=== PATIENT | female | born 1935 | race Caucasian/White ===

== ENCOUNTER 2018-06-03 20:13 | Inpatient (IN) | payer MEDICARE ==
[2018-06-03 21:15] LABS: #Basophils 0.1 thou/uL (0.0-0.2); #Lymphocytes 0.9 thou/uL (1.20-3.40); #Monocytes 0.4 thou/uL (0.11-0.59); #Neutrophils 10.5 thou/uL (1.40-6.50); %Basophils 0.5 % (0.0-1.0); %Eosinophils 0.2 % (0.0-10.0); %Lymphocytes 7.6 % (21.0-51.0); %Monocytes 2.9 % (0.0-10.0); %Neutrophils 88.8 % (42.0-75.0); Mean Corpuscular Hemoglobin 33.5 pg (27.0-31.0); Mean Corpuscular Volume 95.6 fL (78.0-98.0); Mean Platelet Volume 6.5 fL (7.4-10.4); Platelet Count 261 thou/uL (130-400); RBC Distribution Width 12.7 % (11.5-14.5); Red Blood Cell (RBC) Count 4.48 mill/uL (4.20-5.40); White Blood Cell (WBC) Count 11.9 thou/uL (4.8-10.8)
--- NOTE | 2018-06-03 21:16 | RAD ---
RADIOGRAPH CHEST 1 VIEW: Date: 06/03/18 Time: 7:50 p.m. HISTORY: 82-year-old female with fever. COMPARISON: 10/19/15. FINDINGS: Ectasia and tortuosity of the thoracic aorta. Prior studies were lateral decubitus views, and therefo re direct comparison of the apparently enlarged right hilar shadow, is difficult. Lungs are hypoinfla vernon. There is a region of nonspecific increased attenuation at the right lateral base. No consolidati on or pulmonary edema in the rest of the visualized lung allen. No pneumothorax. No effacement of la teral costophrenic angles. IMPRESSION: 1. Nonspecific area of faintly low attenuation at the right lateral base. This does not appear t ypical for an infiltrate, and perhaps is artifact. 2. No evidence of pneumonia elsewhere. 3. enlarged appearance of the right hilum. JN [] POS: JIN
[2018-06-03 21:33] LABS: ALT (SGPT) 10 U/L (8-55); AST (SGOT) 21 U/L (5-34); Albumin 3.8 g/dL (3.4-4.8); Alkaline Phosphatase 63 U/L (40-150); Anion Gap 13 mmol/L (10-20); BUN (Urea Nitrogen) 14 mg/dL (9.8-20.1); Bilirubin, Total 0.7 mg/dL (0.2-1.2); Calc. Creatinine Clearance 0 mL/min (70-130); Calcium 9.2 mg/dL (7.8-10.44); Carbon Dioxide 21 mmol/L (23-31); Chloride 98 mmol/L (98-107); Estimated GFR-MDRD 71; Globulin 2.6 g/dL (2.4-3.5); Glucose 222 mg/dL (83-110); Potassium 3.5 mmol/L (3.5-5.1); Protein, Total 6.4 g/dL (6.0-8.3); Sodium 128 mmol/L (136-145)
[2018-06-03 21:42] LABS: Bilirubin Negative (Negative); Blood, Urine Moderate (Negative); Clarity CLOUDY (Clear); Glucose, Urine (Dipstick) Negative (Negative); Leukocyte Moderate (Negative); Nitrite Positive (Negative); Protein, Urine (Dipstick) Negative (Neg-Trace); Specific Gravity, Urine 1.015 (1.002-1.036); Urobilinogen 0.2 mg/dL (0.2-1.0)
[2018-06-03 21:44] LABS: Bacteria/HPF Rare-Few HPF (None Seen); Pathc Cast-AUWi Flag 1.59 (0-2.49); Squamous Epithelial None Seen HPF (0-3); WBC/HPF 21-50 HPF (0-3)
[2018-06-03] MEDS ORDERED: Ketorolac Tromethamine 30 MG/ML VIAL ONE (21:47)
[2018-06-03] MEDS ORDERED: cefTRIAXone\\ROCEPHIN 1 GM VIAL ONE (22:09)
[2018-06-04] MEDS ORDERED: Norepinephrine 8 MG/0.9% NS 250 ML ONE (00:44)
[2018-06-04] MEDS ORDERED: Acetaminophen 325 MG TAB PO PRN (01:17)
[2018-06-04] MEDS ORDERED: Ondansetron HCl/PF 4 MG/2 ML Vial IVP PRN (01:17)
[2018-06-04] MEDS ORDERED: Norepinephrine 8 MG/0.9% NS 250 ML IVPB SCH (01:30)
[2018-06-04] MEDS ORDERED: VANCOMYCIN IVPB PRN (01:38)
[2018-06-04 02:16] VITALS: BMI 28.6
[2018-06-04] MEDS: Sodium Chloride 0.9% 1,000 ML IV SCH ×2 (03:27→12:39)
[2018-06-04 04:46] LABS: Anion Gap 12 mmol/L (10-20); BUN (Urea Nitrogen) 11 mg/dL (9.8-20.1); Calc. Creatinine Clearance 74 mL/min (70-130); Carbon Dioxide 17 mmol/L (23-31); Chloride 107 mmol/L (98-107); Estimated GFR-MDRD 80; Glucose 185 mg/dL (83-110); Potassium 3.4 mmol/L (3.5-5.1); Sodium 133 mmol/L (136-145)
[2018-06-04] MEDS: Piperacillin/Tazobactam 3.375 GM in Sodium Chloride 0.9% 100 ML IVPB SCH ×3 (05:40→18:36)
[2018-06-04] MEDS: Levothyroxine Sodium 100 MCG TAB PO SCH (05:44)
--- NOTE | 2018-06-04 06:05 | HP ---
PRIMARY CARE PHYSICIAN: . CODE STATUS: FULL CODE. TIME OF EVALUATION: 11:45 p.m. CHIEF COMPLAINT: Confusion. HISTORY OF PRESENT ILLNESS: This is an 82-year-old female patient with past medical history of hyper tension, left breast cancer without treatment, chronic back pain. The patient came to the hospital a fter having a fall, patient had generalized weakness, symptoms were severe, no clear triggers, no all eviating factors associated with disorientation, confusion. Patient was found to have fever in the E R. REVIEW OF SYSTEMS: Unable to fully obtain since patient has a change in mental status. PAST MEDICAL HISTORY: Mentioned on the HPI. PAST SURGICAL HISTORY: Appendectomy, hysterectomy, left breast biopsy. PSYCHIATRIC HISTORY: No previous psychiatric history. FAMILY HISTORY: Reviewed and noncontributory for current presentation. SOCIAL HISTORY: Patient used tobacco, smokes cigarettes daily. Patient smoked 1 pack per day. DRUG ALLERGIES: MORPHINE. REPORTED MEDICATIONS: Levothyroxine, captopril, aspirin, gabapentin. PHYSICAL EXAMINATION: VITAL SIGNS: On presentation blood pressure 113/62 with heart rate 120, pain was 0, oxygen saturatio ns 90. CONSTITUTIONAL: Patient had fever, chills, generalized weakness, severe, disoriented, not in any acu te distress. HEENT: Eyes: Normal conjuctivae. Dry oral mucosa. Anicteric. NECK: No JVD. RESPIRATORY: Bilateral air entry. No rales, no wheezing. Symmetric expansion. CARDIOVASCULAR: Normal rate, regular rhythm. No murmurs, no gallop, no edema. ABDOMEN: Soft, normal bowel sounds. MUSCULOSKELETAL: Baseline range of motion and strength. No tenderness. SKIN: Warm and intact. No pallor, no rash, no redness. Peripheral pulses are present. Capillary r efill seems to be intact. NEUROLOGIC: Baseline sensory. No evidence of any new focal weakness. Baseline speech. Cranial ner ves seem to be intact. PSYCHIATRIC: Patient is disoriented, unable to fully explore. LABORATORY DATA: EKG was reviewed. The patient has sinus tachycardia with first-degree AV block, le ft axis deviation, complete RBBB, septal infarct. T-wave abnormality consider inferior lateral ische lindsey, ventricular rate 116, WI 216, QRS 118, QT corrected 453. Chest x-ray was reviewed. The patient had no specific area of pain to the low attenuation of the right lateral base. Perhaps, this does n ot appear typical for an infiltrate perhaps represent artifacts. No evidence of pneumonia enla rgement of the right ilium. LABORATORY DATA: Reviewed. The patient's white count 11.9, hemoglobin 15, MCV 95, platelet count 26 1. Sodium 128, potassium 3.5, chloride 98, carbon dioxide 21, anion gap 13, BUN 14, creatinine 0.7, GFR 71, glucose 222. Urine was positive, white count 21-50. ASSESSMENT AND PLAN: The patient will be placed in the hospital with following medical conditions: Critical care time more than 35 minutes span at bedside for patient stabilization, assessment of the patient, family meeting, coordination of care, reviewing the elaboration of records. 1. Patient is in septic shock with fever, hypotension needing vasopressors, patient also receiving a ntibiotics, we will follow cultures, we will adjust treatment as needed. We will do CAT scan wheneve r patient is stable to rule out complicated urinary tract infection. 2. Urinary tract infection, positive UA, urine culture pending. We will follow results, we will ad just treatment as needed. Management as above. Patient received a full liter of fluids. 3. Uncontrolled hypertension. Patient presented with shock, did not give any blood pressure medicat ion at this point. 4. Hypothyroidism. Continue hormone replacement. 5. Chronic obstructive pulmonary disease, this is chronic, seems to be stable, we will reconcile estrada e medications. 6. Deep venous thrombosis prophylaxis. 7. History of left breast malignancy, patient has opted for no treatment.
[2018-06-04 06:27] LABS: #Lymphocytes 1.9 thou/uL (1.20-3.40); #Monocytes 0.9 thou/uL (0.11-0.59); #Neutrophils 8.9 thou/uL (1.40-6.50); %Basophils 0.1 % (0.0-1.0); %Eosinophils 0.2 % (0.0-10.0); %Lymphocytes 16.4 % (21.0-51.0); %Monocytes 7.9 % (0.0-10.0); %Neutrophils 75.3 % (42.0-75.0); Hemoglobin 13.9 g/dL (12.0-16.0); Mean Corpuscular HGB CONC 33.2 g/dL (32.0-36.0); Mean Corpuscular Volume 96.4 fL (78.0-98.0); Mean Platelet Volume 7.2 fL (7.4-10.4); Platelet Count 199 thou/uL (130-400); RBC Distribution Width 12.7 % (11.5-14.5); RBC Morphology Normal; Red Blood Cell (RBC) Count 4.34 mill/uL (4.20-5.40); White Blood Cell (WBC) Count 11.8 thou/uL (4.8-10.8)
--- NOTE | 2018-06-04 06:39 | CT ---
CT HEAD NONCONTRAST: INDICATIONS: Fall with head injury. Pain. COMPARISON: 05/19/2008 FINDINGS: There is stable atrophy with compensatory dilatation of the ventricular system. Encephalomalacia of the right frontal lobe, anteriorly, is again seen, which is superimposed upon mild chronic ischemic d isease. There are punctate areas of diminished attenuation of the bilateral basal ganglia, compatibl e with lacunar infarctions. The calvarium is intact. No fluid level of the imaged paranasal sinuses . IMPRESSION: 1. No acute intracranial hemorrhage or mass effect. 2. Incidental note of focal hyperdensity of the left suboccipital region, partially imaged. This co uld relate to volume averaging of the posterior paraspinous/left neck musculature, although the findi ng is not confirmed. As necessary, followup with cervical spine CT may be performed to confirm trave rsing neck musculature of this region. CODE T POS: SCOTTY
--- NOTE | 2018-06-04 06:56 | PDOC.EVN ---
Event Note - Event Note Event Note: central line was in not appropriate position, needs to be removed and placement of a new one if still needed for vasopressors
--- NOTE | 2018-06-04 07:43 | CT ---
PRELIMINARY REPORT/[facility]/EMERGENTY AFTER-HOURS PROCEDURE Addendum created by Chet Ritter MD on 06/04/2018 6:53 AM Central Time ([place] & [place]) Findings were dis cussed with Kavita York at 06/04/2018 6:51 AM CDT. Initial Report created on 06/04/2018 6:46 AM Central Time ([place] & [place]) CT Abdomen and Pelvis Without Intravenous Contrast EXAM DATE/TIME: Exam ordered 06/04/2018 5:12 AM CLINICAL HISTORY: 82 years old, female; Pain; Abdominal pain; Generalized; Patient HX: R/O complicated uti TECHNIQUE: Axial computed tomography images of the abdomen and pelvis without intravenous contrast. Coronal refo rmatted images were created and reviewed. COMPARISON: No relevant prior studies available. FINDINGS: Lung bases: There is a 13 mm nodule within the LEFT lingula. Pleural space: There are small bilateral pleural effusions and interlobular thickening consistent wit h pulmonary edema. ABDOMEN: Liver: The liver demonstrates punctate calcifications, consistent with remote granulomatous organism exposure. Gallbladder and bile ducts: The gallbladder is normal. There is no evidence of biliary ductal dilatio n. No calcified stones. Pancreas: The pancreas appears normal. No ductal dilation. Spleen: The spleen demonstrates punctate calcifications, consistent with remote granulomatous organis m exposure. Adrenals: The adrenal glands are normal. Kidneys and ureters: The kidneys appear normal. No obstructing stones. No hydronephrosis. Stomach and bowel: The stomach is normal. The duodenum is unremarkable. The colon is normal. No obstruction. No mucosal thickening. PELVIS: Appendix: No findings to suggest acute appendicitis. Bladder: The bladder is normal. No stones. Reproductive: The uterus is not visualized, and may be atrophic or surgically absent. ABDOMEN and PELVIS: Intraperitoneal space: Normal. No free air. No significant fluid collection. Bones/joints: There is a 2.7 x 1.6 x 2.0 cm soft tissue mass within the LEFT posterior elements of L4 . There are moderate lumbar spine degenerative changes. No acute fracture. No dislocation. Soft tissues: There is questionable LEFT breast soft tissue thickening, incompletely visualized. Vasculature: Normal. No abdominal aortic aneurysm. Lymph nodes: Normal. No enlarged lymph nodes. IMPRESSION: 1. There is a 13 mm nodule within the LEFT lingula. 2. There is a 2.7 x 1.6 x 2.0 cm soft tissue mass within the LEFT posterior elements of L4. Further w orkup is recommended. 3. Small bilateral pleural effusions with mild pulmonary edema. Thank you for allowing us to participate in the care of your patient. Dictated and Authenticated by: Chet Ritter MD 06/04/2018 6:46 AM Central Time ([place] & [place]) FINAL REPORT CT ABDOMEN AND PELVIS WITHOUT CONTRAST: HISTORY: Complicated urinary tract infection. COMPARISON: None. FINDINGS: The findings and impression are concordant with the preliminary report. In addition, there is abnorm al wall skin thickening over the left breast. IMPRESSION: Findings and impression are concordant with the preliminary report. Diagnostic mammography and ultra sound is recommended. After workup of this left breast soft tissue thickening, histologic sampling m ay be necessary at the L4 posterior element mass. CODE: T POS: SCOTTY
--- NOTE | 2018-06-04 08:12 | RAD ---
RADIOGRAPH CHEST 1 VIEW: Date: 06/04/18 Time: 0039 HOURS HISTORY: 82-year-old female status post central line placement. COMPARISON: 06/03/18 at 1950 hours. FINDINGS: There is a new right subclavian central vascular catheter which ascends the right neck, with distal t ip outside of the field of view. Prominent right hilum is again noted. Elevated right hemidiaphragm. Small, ill-defined region of increased attenuation at the lateral aspect of the left lower lung zone, apparently new since the prior study. No pulmonary edema. No pneumothorax. IMPRESSION: 1. Right subclavian central vascular catheter ascends the right neck. 2. No pneumothorax. 3. Questionable new focal pulmonary versus chest wall density at left lateral lower lung zone versus artifact. Recommend follow-up. 4. Enlargement of right hilum. PRETTY [] POS: SCOTTY
[2018-06-04] MEDS: Aspirin 81 mg Enteric Coated Tablet PO SCH (08:32)
[2018-06-04] MEDS: Enoxaparin Sodium 40 MG/0.4 ML SYRINGE SC SCH (08:32)
--- NOTE | 2018-06-04 08:41 | PDOC.PULCN ---
<Zach Soares - Last Filed: 06/04/18 10:13> Pulmonology Consult: HPI - Date of Consult Date: 06/04/18 Time: 08:00 - Consult Details Reason for Consult: ICU admission needed pressure support - History of Present Illness HPI: NARESH KELLEY is a 82 year-old F 82 yo F admitted after collapsing at home. She states that she was having a normal day prior to the event and suddenly felt weak and collapsed. She denies LOC or hitting her head. In the ED she was noted to have a UA c/w UTI, though pt denies symptoms such as frequency or dysuria. She was noted to be hypotensive and required pressure support. R SC CVC was placed, however the distal tip is in the IJ. Patient was started on Vanc and zosyn in the ER. This morning pt complains of new cough and wheezing. She denies prior hx of similar symptoms. Pulmonology Consult: ROS - Review of Systems Constitutional: sweats, weakness. negative: fever, chills Cardiovascular: negative: chest pain, palpitations, edema Respiratory: productive cough, wheezing. negative: bloody sputum, short of breath Pulmonology Consult: PMH Source: patient Past Medical History: HTN, L Breast Ca s/p lumpectomy, hypothyroid - Family History Family history: reviewed and not pertinent - Social History Smoking Status: Current every day smoker, Smokes 11 or more cig/day Pack Years: 40 Alcohol Use: none Drug Use History: none Living Situation: independent Pulmonology Consult: Meds - Medications MAR Reviewed: Yes Medications: Current Medications Acetaminophen (Tylenol) 650 mg PO Q4H PRN PRN Reason: Headache/Fever or Pain Aspirin (Ecotrin) 81 mg PO DAILY PAO Enoxaparin Sodium (Lovenox) 40 mg SC 0900 PAO Gabapentin (Neurontin) 300 mg PO HS PAO Piperacillin Sod/Tazobactam (Sod 3.375 gm/ Sodium Chloride) 100 mls @ 200 mls/ hr IVPB Q6HR PAO Last Admin: 06/04/18 05:40 Dose: 100 mls Norepinephrine Bitartrate (Levophed) 250 mls @ 0 mls/hr IVPB INF PAO; Protocol Sodium Chloride (Normal Saline 0.9%) 1,000 mls @ 100 mls/hr IV .Q10H PAO Last Admin: 06/04/18 03:27 Dose: 1,000 mls Vancomycin HCl 1.25 gm/ Sodium (Chloride) 250 mls @ 166.667 mls/hr IVPB 1600 [facility] Levothyroxine Sodium (Synthroid) 100 mcg PO 0600 [facility] Last Admin: 06/04/18 05:44 Dose: 100 mcg Miscellaneous Medication (Pharmacy To Dose) 0 each IVPB PRN PRN PRN Reason: VANCOMYCIN Ondansetron HCl (Zofran) 4 mg IVP Q6H PRN PRN Reason: Nausea/Vomiting Pantoprazole Sodium (Protonix) 40 mg PO DAILY [facility] - Allergies Allergies/Adverse Reactions: Allergies Allergy/AdvReac Type Severity Reaction Status Date / Time morphine Allergy Verified 10/18/15 21:24 Pulmonology Consult: PE - Physical Exam Constitutional: NAD HEENT: PERRLA, moist MMs Neck: no nodes, no JVD Cardiovascular: RRR Deviation from normal: Difficult to asucultate heart sounds over wheezing Respiratory: wheezes (throughout) Gastrointestinal: soft, non-tender, no distention, positive bowel sounds Musculoskeletal: no edema Neurological: non-focal, normal sensation, moves all 4 limbs Psychiatric: normal affect, A&O x 3 Skin: no rash, normal turgor Pulmonology Consult: Results - Labs Result Diagrams: 06/04/18 04:27 06/04/18 04:26 - Radiology Interpretation CT scan - chest Status: image reviewed by me, report reviewed by me (b/l pleural effusion, 13 mm nodule in L lingula) Chest x-ray Status: image reviewed by me, report reviewed by me (SC CVC ending in R IJ, pulmonary vs chest wall density L lung) CT scan - abdomen Status: image reviewed by me, report reviewed by me (Soft tissue mass L posterior L4) Pulmonology Consult: A/P - Problem (1) Sepsis Current Visit: No Code(s): A41.9 - SEPSIS, UNSPECIFIED ORGANISM Status: Acute (2) COPD (chronic obstructive pulmonary disease) Current Visit: Yes Status: Suspected (3) UTI (urinary tract infection) Current Visit: Yes Status: Acute (4) Soft tissue mass Current Visit: Yes Code(s): M79.9 - SOFT TISSUE DISORDER, UNSPECIFIED Status : Acute - Time Time: 50% of the time was spent in coordination of care (as documented) at patient's floor/unit and/or counseling patient. Time with Patient: greater than 50 minutes - Plan Plan: Urosepsis - pt doing much better this morning that at time of admission. No longer requiring pressure support. Pt has received adequate IVF. - change abx to rocephin daily, cultures pending - may be appropriate to leave ICU today if BP continues to be stable COPD - this is the most likely cause of the patient's wheezing. Though she does not carry the dx, her hx is certainly c/w COPD. - not currently requiring O2, does not have home O2 - Continue to monitir Soft tissue mass posterior L4 - incidental finding on CT. May need further work up in outpt setting. HTN - BP currently stable. Restart home meds when appropriate <Adalid Lemons - Last Filed: 06/04/18 12:36> Pulmonology Consult: HPI - History of Present Illness HPI: NARESH KELLEY is a 82 year-old F Pulmonology Consult: Meds - Medications Medications: Current Medications Acetaminophen (Tylenol) 650 mg PO Q4H PRN PRN Reason: Headache/Fever or Pain Aspirin (Ecotrin) 81 mg PO DAILY [facility] Last Admin: 06/04/18 08:32 Dose: 81 mg Enoxaparin Sodium (Lovenox) 40 mg SC 0900 [facility] Last Admin: 06/04/18 08:32 Dose: 40 mg Gabapentin (Neurontin) 300 mg PO HS PAO Piperacillin Sod/Tazobactam (Sod 3.375 gm/ Sodium Chloride) 100 mls @ 200 mls/ hr IVPB Q6HR [facility] Last Admin: 06/04/18 05:40 Dose: 100 mls Norepinephrine Bitartrate (Levophed) 250 mls @ 0 mls/hr IVPB INF PAO; Protocol Sodium Chloride (Normal Saline 0.9%) 1,000 mls @ 100 mls/hr IV .Q10H [facility] Last Admin: 06/04/18 03:27 Dose: 1,000 mls Vancomycin HCl 1.25 gm/ Sodium (Chloride) 250 mls @ 166.667 mls/hr IVPB 1600 PAO Levothyroxine Sodium (Synthroid) 100 mcg PO 0600 [facility] Last Admin: 06/04/18 05:44 Dose: 100 mcg Miscellaneous Medication (Pharmacy To Dose) 0 each IVPB PRN PRN PRN Reason: VANCOMYCIN Ondansetron HCl (Zofran) 4 mg IVP Q6H PRN PRN Reason: Nausea/Vomiting Last Admin: 06/04/18 08:28 Dose: 4 mg Pantoprazole Sodium (Protonix) 40 mg PO DAILY PAO Last Admin: 06/04/18 08:32 Dose: 40 mg Pulmonology Consult: Results - Labs Result Diagrams: 06/04/18 04:27 06/04/18 04:26 Pulmonology Consult: A/P - Time Time: 50% of the time was spent in coordination of care (as documented) at patient's floor/unit and/or counseling patient. Attending Addendum - Attending Addendum Date/Time: 06/04/18 [id number] I personally evaluated the patient and discussed the management with Dr. Soares I agree with the History, Examination, Assessment and Plan documented above with any addition or exceptions noted below. 70 minutes have been devoted to this patient in various activities. I personally reviewed all imaging studies and laboratory data noted within this document. For fifty percent of this time, I was interacting with the patient at the bedside or coordinating care with the care team. For the remainder of the time I was immediately available to the patient in the hospital unit.
[2018-06-04] MEDS: Vancomycin HCl 1.25 GM in Sodium Chloride 0.9% 250 ML 250 ML IVPB SCH (16:46)
[2018-06-04] MEDS: Gabapentin 300 MG CAP PO SCH (20:38)
--- NOTE | 2018-06-04 23:00 | PDOC.PN ---
- Subjective Encounter Start Date: 06/04/18 Encounter Start Time: 09:00 Doing well today. Feeling better. Did not have any symptoms of the UTI. - Objective Resuscitation Status: Resuscitation Status FULL:Full Resuscitation Vital Signs & Weight: Vital Signs (12 hours) Temp Pulse Pulse BP BP Pulse Ox Pulse Ox 06/04/18 19:00 99.0 F 06/04/18 16:00 98.1 F 06/04/18 14:44 97 103 H 108/81 132/64 96 95 Weight Weight 171 lb 15.369 oz Most Recent Monitor Data Heart Rate from ECG 97 NIBP 120/65 NIBP BP-Mean 92 Respiration from ECG 24 SpO2 100 I&O: 06/03/18 06/04/18 06/05/18 06:59 06:59 06:59 Intake Total 511.2 1940 Output Total 1575 Balance 511.2 365 Result Diagrams: 06/04/18 04:27 06/04/18 04:26 Phys Exam - Physical Examination Constitutional: NAD Respiratory: no wheezing, no rales, no rhonchi, wheezing present Cardiovascular: RRR, no significant murmur Gastrointestinal: soft, non-tender, no distention Musculoskeletal: no edema Psychiatric: normal affect Dx/Plan (1) UTI (urinary tract infection) Status: Acute (2) COPD (chronic obstructive pulmonary disease) Status: Suspected (3) Sepsis Code(s): A41.9 - SEPSIS, UNSPECIFIED ORGANISM Status: Acute - Plan * Continue abx. Follow up cultures. Transfer to floor. Off of pressors.
[2018-06-05] MEDS: Piperacillin/Tazobactam 3.375 GM in Sodium Chloride 0.9% 100 ML IVPB SCH ×5 (00:26→23:47)
[2018-06-05] MEDS: Sodium Chloride 0.9% 1,000 ML IV SCH (00:26)
[2018-06-05] MEDS ORDERED: Furosemide 40 MG/4 ML VIAL ONE (04:05)
[2018-06-05] MEDS ORDERED: Furosemide 40 MG/4 ML VIAL SLOW IVP SCH (04:15)
[2018-06-05] MEDS: Levothyroxine Sodium 100 MCG TAB PO SCH (05:34)
[2018-06-05 07:37] LABS: Actual Bicarbonate (HCO3a) 17.8 mEq/L (22-28); CO2 Tension 54.8 mmHg (35.0-45.0); O2 Tension (PaO2) 96.2 mmHg (> 60.0); pH, Arterial 7.13 (7.35-7.45)
[2018-06-05 07:38] LABS: Base Excess (BEa) -11.8 mEq/L (-2.0 to +3.0); Calcium, Ionized 1.2 mmol/L (1.12-1.30); Hemoglobin (Hb) 15.3 g/dL (12.0-16.0); Puncture Site RRA
[2018-06-05 09:21] LABS: Band 16 % (5-11); Hemoglobin 14.8 g/dL (12.0-16.0); Lymphocytes 6 % (21-51); MDiff Complete? YES; Mean Corpuscular HGB CONC 32.9 g/dL (32.0-36.0); Mean Corpuscular Hemoglobin 32.4 pg (27.0-31.0); Mean Corpuscular Volume 98.4 fL (78.0-98.0); Mean Platelet Volume 6.6 fL (7.4-10.4); Monocytes 2 % (0-10); Neutrophil 76 % (42-75); Platelet Count 207 thou/uL (130-400); RBC Distribution Width 12.7 % (11.5-14.5); Red Blood Cell (RBC) Count 4.56 mill/uL (4.20-5.40)
[2018-06-05 09:34] LABS: Lactic Acid 5.3 mmol/L (0.5-2.2)
[2018-06-05 09:40] LABS: Anion Gap 16 mmol/L (10-20); BUN (Urea Nitrogen) 10 mg/dL (9.8-20.1); Calc. Creatinine Clearance 45 mL/min (70-130); Calcium 8.6 mg/dL (7.8-10.44); Carbon Dioxide 19 mmol/L (23-31); Chloride 103 mmol/L (98-107); Estimated GFR-MDRD 45; Glucose 268 mg/dL (83-110); Magnesium 1.7 mg/dL (1.6-2.6); Phosphorus 2.9 mg/dL (2.3-4.7); Potassium 3.7 mmol/L (3.5-5.1); Sodium 134 mmol/L (136-145)
[2018-06-05] MEDS ORDERED: Sodium Bicarbonate 150 MEQ in Dextrose 5% in Water 1,000 ML IV SCH (10:00)
[2018-06-05] MEDS ORDERED: Lactated Ringer's 1,000 ML IV SCH (10:00)
[2018-06-05] MEDS ORDERED: Magnesium Sulfate 2 GM in Sodium Chloride 0.9% 100 ML IVPB SCH (10:15)
--- NOTE | 2018-06-05 10:25 | PRG ---
DATE OF SERVICE: 06/05/2018 SERVICE: Pulmonary Medicine. INTERVAL HISTORY: The patient did poorly overnight. She became increasingly lethargic. She had increasing work of breathing and started grunting. Ultimately, an ABG was performed demonstrating acute hypercapnic as well as metabolic acidosis. We temporized her with BiPAP. We are in the investigation phase right now. She cannot provide any additional elements of the history. Otherwise, there has been no interval change to her condition. PHYSICAL EXAMINATION: VITAL SIGNS: Afebrile with temperature maximum 99.8, which is up trending, pulse 119 and irregular, blood pressure 114/64, respirations 30, saturation 96% on 60% FiO2 delivered via BiPAP at 10/5. HEENT: Normocephalic, atraumatic. Sclerae are white, conjunctivae pink. Oral and nasal mucosa is extremely dry. LUNGS: Rhonchi are present throughout bilateral lung allen. I really do not appreciate crackles or wheezing. HEART: Tachycardic. Regular. ABDOMEN: Soft, nontender, nondistended. Bowel sounds are positive. MUSCULOSKELETAL: No cyanosis or clubbing. There is no pitting in the bilateral lower extremities. NEUROLOGIC: Grossly nonfocal. LABORATORY DATA: Morning laboratories are currently pending. We previously discontinued them, but because of her change in status, we are going to go ahead and order them. She has gram negative rods growing in the urine culture and 1 out of 2 blood cultures growing coag negative staph. IMAGING DATA: Chest x-ray demonstrates small infiltrate in the right mid lung zone. No evidence of pneumothorax is present. There is blunting of bilateral costophrenic regions, possibly consistent with fluid. ASSESSMENT: 1. Acute hypoxic respiratory failure. 2. Septic shock, resolving. 3. Urinary tract infection. 4. Chronic obstructive pulmonary disease with acute exacerbation. 5. Combined metabolic and respiratory acidosis. DISCUSSION AND PLAN: We are going to talk to family about whether or not the patient would like to be aggressive under these circumstances. I do believe that moving forward, she is likely going to require intubation in order to give this some more time to clarify what happening here. We are going to continue our empiric antibiotics. Central line will be considered to help clarify our volume status. CBC, basic metabolic profile, lactate, magnesium and phosphorus will be obtained under stat conditions. Pulmonary or Critical Care will continue to follow along. I have titrated BiPAP at bedside. The patient is going to need quite a bit of attention throughout the day. CRITICAL CARE TIME: 30 minutes. JEFFRY
[2018-06-05] MEDS ORDERED: Magnesium 2 GM/NS 0.9% 100 ML 2 GM in Premix Bag 1 BAG IVPB SCH (10:30)
--- NOTE | 2018-06-05 10:37 | RAD ---
SINGLE VIEW OF CHEST: Date: 06/05/18 COMPARISON: 06/04/18. HISTORY: Intubated patient with respiratory failure. FINDINGS: Single view of the chest shows normal sized cardiomediastinal silhouette. There is elevation of the r ight hemidiaphragm. Bilateral lower lobe air space opacities are seen which may represent infiltrates and/or pleural effusions. No endotracheal tube is visualized. IMPRESSION: Bibasilar infiltrates with likely adjacent small pleural effusions. POS: [facility]
[2018-06-05] MEDS: Enoxaparin Sodium 40 MG/0.4 ML SYRINGE SC SCH (11:28)
[2018-06-05 15:33] LABS: Base Excess (BEa) -8.1 mEq/L (-2.0 to +3.0); CO2 Tension 50.8 mmHg (35.0-45.0); Calcium, Ionized 1.2 mmol/L (1.12-1.30); Hemoglobin (Hb) 14.9 g/dL (12.0-16.0); O2 Tension (PaO2) 87.8 mmHg (> 60.0); pH, Arterial 7.21 (7.35-7.45)
[2018-06-05 15:34] LABS: Puncture Site RRA
--- NOTE | 2018-06-05 15:54 | PDOC.PN ---
- Subjective Encounter Start Date: 06/05/18 Encounter Start Time: 10:15 She took a turn for worse during the night. She is having some respiratory failure and requiring non-rebreather. Non-verbal. - Objective Resuscitation Status: Resuscitation Status DNR:Do Not Resuscitate Vital Signs & Weight: Vital Signs (12 hours) Temp Pulse Resp Pulse Ox 06/05/18 14:31 124 H 06/05/18 12:26 117 H 06/05/18 12:00 100.3 F H 06/05/18 10:43 120 H 06/05/18 08:00 99.7 F H 119 H 34 H 97 06/05/18 07:45 119 H 06/05/18 07:00 99.8 F H 06/05/18 04:00 98.5 F 97 Weight Weight 171 lb 15.369 oz Most Recent Monitor Data Heart Rate from ECG 126 NIBP 131/65 NIBP BP-Mean 94 Respiration from ECG 33 SpO2 80 I&O: 06/04/18 06/05/18 06/06/18 06:59 06:59 06:59 Intake Total 511.2 3019 1000 Output Total 1955 480 Balance 511.2 1064 520 Result Diagrams: 06/05/18 08:55 06/05/18 08:55 Phys Exam - Physical Examination Non-rebreather with tachypnea. Respiratory: no rales Harsh bilateral wheezes and rales. Cardiovascular: RRR, no significant murmur Gastrointestinal: soft, non-tender, no distention Musculoskeletal: no edema Dx/Plan (1) UTI (urinary tract infection) Status: Acute (2) COPD (chronic obstructive pulmonary disease) Status: Suspected (3) Sepsis Code(s): A41.9 - SEPSIS, UNSPECIFIED ORGANISM Status: Acute (4) Respiratory failure Code(s): J96.90 - RESPIRATORY FAILURE, UNSP, UNSP W HYPOXIA OR HYPERCAPNIA Status: Acute (5) Pneumonia Code(s): J18.9 - PNEUMONIA, UNSPECIFIED ORGANISM Status: Acute - Plan * She is on broad spectrum abx coverage. Initially did well, but took a turn for the worse. Suspect she is having repercussions from the hypotension from sepsis and suffering some end-organ damage. Discussed with P/CC. Trying bicarb for acidosis. Family has made the patient DNR.
[2018-06-05 16:06] LABS: Vancomycin, Trough 7.9 ug/mL
[2018-06-05 16:24] LABS: Lactic Acid 4.4 mmol/L (0.5-2.2)
[2018-06-05 16:25] LABS: Anion Gap 14 mmol/L (10-20); BUN (Urea Nitrogen) 13 mg/dL (9.8-20.1); Calc. Creatinine Clearance 43 mL/min (70-130); Calcium 8.2 mg/dL (7.8-10.44); Carbon Dioxide 19 mmol/L (23-31); Chloride 102 mmol/L (98-107); Estimated GFR-MDRD 42; Glucose 305 mg/dL (83-110); Potassium 3.7 mmol/L (3.5-5.1); Sodium 131 mmol/L (136-145)
[2018-06-05] MEDS: Aspirin 81 mg Enteric Coated Tablet PO SCH (16:40)
[2018-06-05] MEDS: Vancomycin HCl 1.25 GM in Sodium Chloride 0.9% 250 ML 250 ML IVPB SCH (16:40)
[2018-06-05] MEDS: Vancomycin HCl 1.75 GM in Sodium Chloride 0.9% 500 ML IVPB SCH (17:53)
[2018-06-05] MEDS: Sodium Bicarbonate 150 MEQ in Dextrose 5% in Water 1,000 ML IV SCH (17:54)
[2018-06-05] MEDS ORDERED: Acetaminophen 325 MG TAB PO PRN (19:55)
[2018-06-05] MEDS ORDERED: Acetaminophen 650 MG Suppository PR PRN (19:56)
[2018-06-05] MEDS: Enoxaparin Sodium 60 MG/0.6 ML SYRINGE SC SCH (20:02)
[2018-06-05] MEDS: Gabapentin 300 MG CAP PO SCH (20:05)
[2018-06-05] MEDS: Acetaminophen 1,000 MG in Premix Bag 1 BAG IVPB PRN (23:47)
[2018-06-06 04:43] LABS: Anion Gap 16 mmol/L (10-20); BUN (Urea Nitrogen) 20 mg/dL (9.8-20.1); Calc. Creatinine Clearance 35 mL/min (70-130); Calcium 8.4 mg/dL (7.8-10.44); Carbon Dioxide 24 mmol/L (23-31); Chloride 100 mmol/L (98-107); Estimated GFR-MDRD 33; Glucose 368 mg/dL (83-110); Potassium 3.5 mmol/L (3.5-5.1); Sodium 136 mmol/L (136-145)
[2018-06-06 04:44] LABS: Lactic Acid 2.7 mmol/L (0.5-2.2)
[2018-06-06 05:16] LABS: #Lymphocytes 0.9 thou/uL (1.20-3.40); #Monocytes 0.4 thou/uL (0.11-0.59); #Neutrophils 12.5 thou/uL (1.40-6.50); %Basophils 0.1 % (0.0-1.0); %Eosinophils 0.2 % (0.0-10.0); %Lymphocytes 6.6 % (21.0-51.0); %Neutrophils 90.2 % (42.0-75.0); Hemoglobin 14.3 g/dL (12.0-16.0); Mean Corpuscular HGB CONC 33.1 g/dL (32.0-36.0); Mean Corpuscular Hemoglobin 32.5 pg (27.0-31.0); Mean Corpuscular Volume 98.3 fL (78.0-98.0); Mean Platelet Volume 7.5 fL (7.4-10.4); PLT Morphology Comment Appears Decreased; Platelet Count 89 thou/uL (130-400); RBC Distribution Width 12.7 % (11.5-14.5); White Blood Cell (WBC) Count 13.8 thou/uL (4.8-10.8)
[2018-06-06] MEDS: Piperacillin/Tazobactam 3.375 GM in Sodium Chloride 0.9% 100 ML IVPB SCH ×3 (05:51→18:14)
[2018-06-06] MEDS: Levothyroxine Sodium 100 MCG TAB PO SCH (06:03)
[2018-06-06] MEDS: Sodium Bicarbonate 150 MEQ in Dextrose 5% in Water 1,000 ML IV SCH (06:10)
--- NOTE | 2018-06-06 10:02 | PRG ---
DATE OF SERVICE: 06/06/2018 SERVICE: Pulmonary Medicine. INTERVAL HISTORY: The patient is actually doing quite a bit better today. She is . Her oxygen requirements are improving beautifully. She does not have any specific complaints this morning. Tram pena is much more awake and oriented. She appreciates where she is. She remains extraordinarily weak; however. PHYSICAL EXAMINATION: VITAL SIGNS: T-max overnight of 106.3, currently afebrile. Pulse 109, blood pressure 127/74, respir ations 15, and saturation 100% on nonrebreather currently. GENERAL: The patient is awake and alert. No apparent distress. LUNGS: Rhonchi and crackles are present. There is a prolonged expiratory phase with minimal wheezin g. HEART: Normal rate, regular. ABDOMEN: Soft, nontender, nondistended. Bowel sounds are positive. MUSCULOSKELETAL: No cyanosis or clubbing. There is no pitting in the bilateral lower extremities. NEUROLOGIC: Grossly nonfocal. LABORATORY DATA: WBC 13.8, hemoglobin 14.3, platelets 89,000 and dropping. Creatinine 1.49 and stab ilizing, potassium 3.5. Basic metabolic profile is otherwise unremarkable. Lactate is slowly cleari ng to 2.7. Pseudomonas is growing in the urine, which is pansensitive. The blood cultures are posit jerrell for 2 different coag negative species in 1 out of 2. IMAGING: Chest x-ray demonstrates interval development of a very large effusion on the left. There i s also a likely pleural effusion on the right. ASSESSMENT: 1. Acute hypoxic respiratory failure. 2. Septic shock, resolving. 3. Urinary tract infection. 4. Chronic obstructive pulmonary disease with acute exacerbation. 5. Pleural effusion, large. DISCUSSION AND PLAN: We will do a bedside ultrasound. If we see a large pocket of fluid on the left , this will be drained. We will continue our empiric antibiotics. It is not clear what has given amanda martinez a severe fever, 3 days into the hospital stay on antibiotics the entire time. She is cautiously c learing some of her end-organ damage. We are going to discontinue the bicarbonate drip today and chanda e her off BiPAP. We will put her on a nonrebreather and titrate this down through time. My suspicio n is that a large effusion on the left caused some atelectasis resulting in the severe hypoxemia, we witnessed yesterday.
--- NOTE | 2018-06-06 10:14 | RAD ---
SINGLE VIEW CHEST: Date: 06/06/18 COMPARISON: 06/05/18. HISTORY: Hypoxia. FINDINGS: Single view of the chest shows a cardiomediastinal silhouette which is upper limits of normal in size . There is a moderate left and a small right effusion. Adjacent atelectasis is also present. Degenera tive changes are seen in the spine. IMPRESSION: Bilateral pleural effusions. POS: [facility]
[2018-06-06] MEDS ORDERED: Lidocaine 1% (PF) 30 ML VIAL ONE (10:41)
[2018-06-06] MEDS: Pantoprazole 40 MG VIAL IVP SCH (10:57)
[2018-06-06] MEDS: Enoxaparin Sodium 60 MG/0.6 ML SYRINGE SC SCH ×2 (10:59→20:11)
[2018-06-06 11:04] LABS: BF Color Yellow; Body Fluid Source THORACENTESIS FLD; Clarity Clear (Clear)
[2018-06-06 11:05] LABS: RBC Background Count 0.001; WBC Background Count 0.01; WBC/NonHematic-Auto 870 /cumm
[2018-06-06 11:07] LABS: Pleural Fluid, Protein 1.4 g/dL
[2018-06-06 11:27] LABS: BF RBC Count - Manual 97 /cumm
[2018-06-06 11:38] LABS: BF Segmented Neutrophils 78 %; Cell Count Non Hematic 20 %; Lymphocytes 2 %
--- NOTE | 2018-06-06 13:42 | PDOC.PN ---
- Subjective Encounter Start Date: 06/06/18 Encounter Start Time: 10:50 No specific complaints, but has some difficulty speaking with the oxygen mask and tachypnea. - Objective Resuscitation Status: Resuscitation Status DNR:Do Not Resuscitate Vital Signs & Weight: Vital Signs (12 hours) Temp Pulse Resp Pulse Ox 06/06/18 12:57 108 H 17 06/06/18 07:55 100 06/06/18 07:00 99.5 F 06/06/18 06:42 105 H 06/06/18 05:00 99.1 F 06/06/18 03:18 108 H 06/06/18 03:00 98.7 F Weight Weight 171 lb 15.369 oz Most Recent Monitor Data Heart Rate from ECG 108 NIBP 84/57 NIBP BP-Mean 67 Respiration from ECG 27 SpO2 82 I&O: 06/05/18 06/06/18 06/07/18 06:59 06:59 06:59 Intake Total 3019 4439 Output Total 1955 940 50 Balance 1064 3499 -50 Result Diagrams: 06/06/18 03:45 06/06/18 03:45 Phys Exam - Physical Examination Still very tachypneic. Improved air exchange. Still has rales and upper airway secretions. Cardiovascular: RRR, no significant murmur Gastrointestinal: soft, non-tender, no distention, positive bowel sounds Musculoskeletal: no edema Dx/Plan (1) Septic shock due to Pseudomonas species Code(s): A41.52 - SEPSIS DUE TO PSEUDOMONAS; R65.21 - SEVERE SEPSIS WITH SEPTIC SHOCK Status: Acute Comment: Appeared to have some end organ damage, but improving now. (2) Acute respiratory failure with hypoxia Code(s): J96.01 - ACUTE RESPIRATORY FAILURE WITH HYPOXIA Status: Acute Comment: Improving. Pulmonary following. Tapped effusion this morning. (3) UTI (urinary tract infection) Status: Acute Comment: Pseudomonas. Sensitive to the zosyn. (4) COPD (chronic obstructive pulmonary disease) Status: Suspected Comment: Still has some respiratory challenge. Continue nebs, supportive oxygen. (5) Sepsis Code(s): A41.9 - SEPSIS, UNSPECIFIED ORGANISM Status: Acute Comment: Stabilizing. (6) Respiratory failure Code(s): J96.90 - RESPIRATORY FAILURE, UNSP, UNSP W HYPOXIA OR HYPERCAPNIA Status: Acute Comment: Developed pleural effusion overnight. Tapped by Pulmonary this morning. (7) Pneumonia Code(s): J18.9 - PNEUMONIA, UNSPECIFIED ORGANISM Status: Acute Comment: Continue Zosyn. (8) Pleural effusion Code(s): J90 - PLEURAL EFFUSION, NOT ELSEWHERE CLASSIFIED Status: Acute Comment: Tapped. Clear, straw colored fluid. (9) Septic shock Code(s): A41.9 - SEPSIS, UNSPECIFIED ORGANISM; R65.21 - SEVERE SEPSIS WITH SEPTIC SHOCK Status: Acute (10) Breast cancer Status: Acute Comment: Has chosen not to pursue treatment. (11) Paraspinal mass Code(s): R22.2 - LOCALIZED SWELLING, MASS AND LUMP, TRUNK Status: Acute Comment: Can be evaluated as outpatient when more stable. - Plan * As above. * Continue ICU care.
[2018-06-06] MEDS: Vancomycin HCl 1.75 GM in Sodium Chloride 0.9% 500 ML IVPB SCH (18:13)
[2018-06-06] MEDS: Gabapentin 300 MG CAP PO SCH (20:11)
[2018-06-06] MEDS: Acetaminophen 1,000 MG in Premix Bag 1 BAG IVPB PRN (21:00)
[2018-06-07] MEDS: Piperacillin/Tazobactam 3.375 GM in Sodium Chloride 0.9% 100 ML IVPB SCH ×4 (00:21→18:32)
[2018-06-07 05:00] LABS: Anion Gap 15 mmol/L (10-20); BUN (Urea Nitrogen) 31 mg/dL (9.8-20.1); Calc. Creatinine Clearance 33 mL/min (70-130); Calcium 8.9 mg/dL (7.8-10.44); Carbon Dioxide 24 mmol/L (23-31); Chloride 101 mmol/L (98-107); Estimated GFR-MDRD 31; Glucose 268 mg/dL (83-110); Potassium 3.4 mmol/L (3.5-5.1); Sodium 137 mmol/L (136-145)
[2018-06-07 05:03] LABS: Band 5 % (5-11); Hemoglobin 14.1 g/dL (12.0-16.0); Lymphocytes 3 % (21-51); MDiff Complete? YES; Mean Corpuscular Hemoglobin 32.8 pg (27.0-31.0); Mean Corpuscular Volume 96.3 fL (78.0-98.0); Mean Platelet Volume 7.7 fL (7.4-10.4); Monocytes 2 % (0-10); Neutrophil 90 % (42-75); PLT Morphology Comment Appears Decreased; Platelet Count 103 thou/uL (130-400); RBC Distribution Width 12.5 % (11.5-14.5); White Blood Cell (WBC) Count 23.7 thou/uL (4.8-10.8)
[2018-06-07] MEDS: Levothyroxine Sodium 100 MCG TAB PO SCH (06:28)
[2018-06-07] MEDS: Pantoprazole 40 MG VIAL IVP SCH (07:42)
[2018-06-07] MEDS: Enoxaparin Sodium 60 MG/0.6 ML SYRINGE SC SCH ×2 (07:43→20:27)
--- NOTE | 2018-06-07 11:45 | PDOC.PN ---
- Subjective Encounter Start Date: 05/21/18 Encounter Start Time: 11:44 Subjective: feels like "heck", some SOB - Objective Resuscitation Status: Resuscitation Status DNR:Do Not Resuscitate MAR Reviewed: Yes Vital Signs & Weight: Vital Signs (12 hours) Temp Pulse Pulse Pulse Resp BP BP 06/07/18 08:15 118 H 118 H 136/62 120/62 06/07/18 07:08 06/07/18 07:04 100 26 H 06/07/18 06:00 100.5 F H 06/07/18 04:00 101.0 F H 06/07/18 00:00 98.2 F Pulse Ox Pulse Ox Pulse Ox 06/07/18 08:15 96 98 06/07/18 07:08 96 06/07/18 07:04 96 06/07/18 06:00 06/07/18 04:00 06/07/18 00:00 Weight Admit Weight 171 lb 15.369 oz Weight 185 lb 10.067 oz Most Recent Monitor Data Heart Rate from ECG 111 NIBP 104/55 NIBP BP-Mean 65 Respiration from ECG 19 SpO2 93 I&O: 06/06/18 06/07/18 06/08/18 06:59 06:59 06:59 Intake Total 4439 1232 Output Total 940 445 Balance 3499 787 Result Diagrams: 06/07/18 03:42 06/07/18 03:41 Phys Exam - Physical Examination Neck: no JVD bilat rhonchi, coarse DS Cardiovascular: RRR, no significant murmur Gastrointestinal: soft, positive bowel sounds Musculoskeletal: edema present Dx/Plan (1) Acute respiratory failure with hypoxia Code(s): J96.01 - ACUTE RESPIRATORY FAILURE WITH HYPOXIA Status: Acute Comment: Improving. Pulmonary following. Tapped effusion this morning. (2) Breast cancer Status: Chronic Comment: Has chosen not to pursue treatment. (3) Pleural effusion Code(s): J90 - PLEURAL EFFUSION, NOT ELSEWHERE CLASSIFIED Status: Acute Comment: Tapped. Clear, straw colored fluid. (4) Respiratory failure Code(s): J96.90 - RESPIRATORY FAILURE, UNSP, UNSP W HYPOXIA OR HYPERCAPNIA Status: Acute Qualifiers: Chronicity: acute Respiratory failure complication: hypoxia Qualified Code(s): J96.01 - Acute respiratory failure with hypoxia Comment: Developed pleural effusion overnight. Tapped by Pulmonary this morning. (5) Septic shock Code(s): A41.9 - SEPSIS, UNSPECIFIED ORGANISM; R65.21 - SEVERE SEPSIS WITH SEPTIC SHOCK Status: Acute (6) Septic shock due to Pseudomonas species Code(s): A41.52 - SEPSIS DUE TO PSEUDOMONAS; R65.21 - SEVERE SEPSIS WITH SEPTIC SHOCK Status: Acute Comment: Appeared to have some end organ damage, but improving now. (7) UTI (urinary tract infection) Status: Acute Qualifiers: Urinary tract infection type: site unspecified Comment: Pseudomonas. Sensitive to the zosyn. (8) COPD (chronic obstructive pulmonary disease) Status: Acute Qualifiers: Chronic bronchitis type: unspecified Comment: Still has some respiratory challenge. Continue nebs, supportive oxygen. (9) Pneumonia Code(s): J18.9 - PNEUMONIA, UNSPECIFIED ORGANISM Status: Acute Qualifiers: Pneumonia type: due to unspecified organism Laterality: bilateral Lung location: lower lobe of lung Qualified Code(s): J18.1 - Lobar pneumonia, unspecified organism Comment: Continue Zosyn. (10) Sepsis Code(s): A41.9 - SEPSIS, UNSPECIFIED ORGANISM Status: Acute Qualifiers: Sepsis type: sepsis due to unspecified organism Qualified Code(s): A41.9 - Sepsis, unspecified organism Comment: Stabilizing. - Plan progressive renal failure -: progressive adverse pulmnary chahges -: cont iv antibx, sterrpoids -: discuss with rural service engineer * .
[2018-06-07] MEDS ORDERED: Furosemide 40 MG/4 ML VIAL SLOW IVP SCH (15:30)
[2018-06-07] MEDS ORDERED: Potassium Chloride 20 MEQ TAB PO SCH (15:30)
--- NOTE | 2018-06-07 15:39 | PRG ---
DATE OF SERVICE: 06/07/2018 SERVICE: Pulmonary Medicine. INTERVAL HISTORY: The patient is doing fine from a respiratory standpoint. She is actually doing fa ntastic sitting up in a neuro chair today. She denies having shortness of breath or chest discomfort . She did not have any events overnight. PHYSICAL EXAMINATION: VITAL SIGNS: Afebrile with a T-max of 100.5, pulse 114, blood pressure 132/68, respirations 23, satu ration 95% on room air. GENERAL: The patient is awake and alert, in no apparent distress. LUNGS: Rhonchi and crackles are present. There is no prolonged expiratory phase or wheezing identif ied. HEART: Normal rate, regular. ABDOMEN: Soft, nontender, nondistended. Bowel sounds are positive. MUSCULOSKELETAL: No cyanosis or clubbing. There is no pitting in the bilateral lower extremities. NEUROLOGIC: Grossly nonfocal. LABORATORY DATA: WBC is up trending to 23.7, hemoglobin 14.1, platelets 103,000 and rebounding. Cre atinine 1.57 and stabilizing, BUN 31. Potassium 3.4. Basic metabolic profile is otherwise unremarka ble. Thoracentesis is consistent with a parapneumonic effusion. Pseudomonas aeruginosa is growing i n the urine. Blood cultures are negative in one of the two. The other one is growing contaminants. Body fluid culture and AFB smear are negative. IMAGING: Echocardiogram demonstrates 20%-25% ejection fraction with global hypokinesis. There was s ome mitral regurgitation present. ASSESSMENT: 1. Acute hypoxic respiratory failure, improving. 2. Septic shock, resolving. 3. Urinary tract infection. 4. Chronic obstructive pulmonary disease with acute exacerbation. 5. Acute systolic heart failure. DISCUSSION AND PLAN: We will get Cardiology consultation. We will continue her antibiotics. We luann l watch her volume status very closely. She will use her BiPAP on an as needed basis. Otherwise, I do think she is going to remain in the ICU for at least the next 24 hours, but if she continues to ma ke significant improvements, we will consider for transition to the medical unit in the morning.
--- NOTE | 2018-06-07 15:44 | PQF ---
CLINICAL DOCUMENTATION IMPROVEMENT CLARIFICATION FORM: ICD-10 Updated PLEASE DO AN ADDENDUM TO THE PROGRESS NOTE WITH ANY DOCUMENTATION UPDATES OR ADDITIONS AND CARRY THROUGH TO DC SUMMARY. THANK YOU. DATE: 06/07/18 ATTN: Dr. Low Please exercise your independent, professional judgment in responding to the clarification form. Clinical indicators are provided on the bottom of this form for your review Please check appropriate box(s): x__ I (concur) with the Nursing Assessment findings as stated below. [ ] Pressure Ulcer: (Stage I: Erythema; Stage II: Partial thickness; Stage III : Full thickness; Stage IV: Necrosis to muscle/bone) [ ] Location: POA: [ ] Yes [ ] No[ ] Unable to determine Stage (I to IV): ____(Left____Right____Bilateral___N/A___) [ ] Location: POA: [ ] Yes [ ] No[ ] Unable to determine Stage (I to IV): ____(Left____Right____Bilateral___N/A___) [ ] No pressure ulcer diagnosis [ ] Deep tissue injury [ ] Other diagnosis [ ] Unable to determine In addition, please specify: Present on Admission (POA): [x ] Yes [ ] No [ ] Unable to determine For continuity of documentation, please document condition throughout progress notes and discharge summary. Thank You. CLINICAL INDICATORS - SIGNS / SYMPTOMS / LABS ER NURSES SKIN ASSESSMENT 06/03 @ 2200: PRESSURE ULCER TO THE SACRUM, STAGE II NURSES ASSESSMENT 06/04 @ 0329: SACROCOCCYGEAL PRESSURE ULCER. STAGE II RISKS: H&P 06/04: AGE 82. PT IS IN SEPTIC SHOCK WITH FEVER. UTI. COPD. TREATMENT: SKIN INTERVENTIONS PER NURSING PROTOCOL: POSITION CHANGES: Q2H IN BED, Q1H IN CHAIR SKIN KEPT FROM EXCESSIVE MOISTURE. Thank you, Dea (This form is maintained as a part of the permanent medical record) 2015 [employer]. All Rights Reserved Dea Wright RN, BSN [email or web address] Office: [phone] [facility]
[2018-06-07 15:57] LABS: Vancomycin, Trough 26.5 ug/mL
[2018-06-07] MEDS: Vancomycin HCl 1.75 GM in Sodium Chloride 0.9% 500 ML IVPB SCH (16:24)
[2018-06-07] MEDS: Diltiazem HCl 125 MG, Admixture Fee 1 EACH in Sodium Chloride 0.9% 100 ML IVPB SCH (19:10)
[2018-06-07] MEDS: Gabapentin 300 MG CAP PO SCH (20:27)
[2018-06-08] MEDS: Piperacillin/Tazobactam 3.375 GM in Sodium Chloride 0.9% 100 ML IVPB SCH ×3 (00:42→14:07)
[2018-06-08] MEDS ORDERED: Lorazepam 2 MG/ML VIAL SLOW IVP SCH (01:15)
[2018-06-08] MEDS: Levothyroxine Sodium 100 MCG TAB PO SCH (05:20)
[2018-06-08] MEDS: Diltiazem HCl 125 MG, Admixture Fee 1 EACH in Sodium Chloride 0.9% 100 ML IVPB SCH (05:20)
[2018-06-08 05:36] LABS: Anion Gap 14 mmol/L (10-20); BUN (Urea Nitrogen) 41 mg/dL (9.8-20.1); Calc. Creatinine Clearance 31 mL/min (70-130); Calcium 8.4 mg/dL (7.8-10.44); Carbon Dioxide 26 mmol/L (23-31); Chloride 101 mmol/L (98-107); Estimated GFR-MDRD 27; Glucose 285 mg/dL (83-110); Potassium 3.1 mmol/L (3.5-5.1); Sodium 138 mmol/L (136-145)
[2018-06-08 06:13] LABS: Band 5 % (5-11); Hemoglobin 13.5 g/dL (12.0-16.0); Lymphocytes 2 % (21-51); MDiff Complete? YES; Mean Corpuscular HGB CONC 34.3 g/dL (32.0-36.0); Mean Corpuscular Volume 96.3 fL (78.0-98.0); Monocytes 2 % (0-10); Neutrophil 91 % (42-75); PLT Morphology Comment Appears Decreased; Platelet Count 108 thou/uL (130-400); RBC Distribution Width 12.6 % (11.5-14.5); Red Blood Cell (RBC) Count 4.09 mill/uL (4.20-5.40)
--- NOTE | 2018-06-08 07:18 | PDOC.PN ---
- Subjective Encounter Start Date: 06/08/18 Encounter Start Time: 07:16 Subjective: weak, requiring BIPAP - Objective Resuscitation Status: Resuscitation Status DNR:Do Not Resuscitate MAR Reviewed: Yes Vital Signs & Weight: Vital Signs (12 hours) Temp Pulse Resp Pulse Ox 06/08/18 06:42 95 06/08/18 06:41 112 H 17 95 06/08/18 04:00 98.1 F 98 06/08/18 02:38 104 H 06/08/18 00:27 108 H 25 H 06/08/18 00:00 99.2 F 06/07/18 20:00 98.1 F 139 H 19 95 06/07/18 19:20 114 H Weight Admit Weight 171 lb 15.369 oz Weight 186 lb 8.177 oz Most Recent Monitor Data Heart Rate from ECG 91 NIBP 101/51 NIBP BP-Mean 69 Respiration from ECG 18 SpO2 96 I&O: 06/07/18 06/08/18 06/09/18 06:59 06:59 06:59 Intake Total 1232 1473 Output Total 445 1190 Balance 787 283 Result Diagrams: 06/08/18 04:53 06/08/18 04:53 Radiology Reviewed by me: Yes (cxr-bilat pleural effusions, adverse) EKG Reviewed by me: Yes (atrial flutter with variable block) Phys Exam - Physical Examination Constitutional: NAD dull to perc in bases, coarse BS Cardiovascular: no significant murmur, irregular Gastrointestinal: soft, positive bowel sounds Musculoskeletal: no edema Dx/Plan (1) Acute respiratory failure with hypoxia Code(s): J96.01 - ACUTE RESPIRATORY FAILURE WITH HYPOXIA Status: Acute Comment: Improving. Pulmonary following. Tapped effusion this morning. (2) Breast cancer Status: Chronic Comment: Has chosen not to pursue treatment. (3) Pleural effusion Code(s): J90 - PLEURAL EFFUSION, NOT ELSEWHERE CLASSIFIED Status: Acute Comment: Tapped. Clear, straw colored fluid. (4) Respiratory failure Code(s): J96.90 - RESPIRATORY FAILURE, UNSP, UNSP W HYPOXIA OR HYPERCAPNIA Status: Acute Qualifiers: Chronicity: acute Respiratory failure complication: hypoxia Qualified Code(s): J96.01 - Acute respiratory failure with hypoxia Comment: Developed pleural effusion overnight. Tapped by Pulmonary this morning. (5) Septic shock Code(s): A41.9 - SEPSIS, UNSPECIFIED ORGANISM; R65.21 - SEVERE SEPSIS WITH SEPTIC SHOCK Status: Acute (6) Septic shock due to Pseudomonas species Code(s): A41.52 - SEPSIS DUE TO PSEUDOMONAS; R65.21 - SEVERE SEPSIS WITH SEPTIC SHOCK Status: Acute Comment: Appeared to have some end organ damage, but improving now. (7) UTI (urinary tract infection) Status: Acute Qualifiers: Urinary tract infection type: site unspecified Comment: Pseudomonas. Sensitive to the zosyn. (8) COPD (chronic obstructive pulmonary disease) Status: Acute Qualifiers: Chronic bronchitis type: unspecified Comment: Still has some respiratory challenge. Continue nebs, supportive oxygen. (9) Pneumonia Code(s): J18.9 - PNEUMONIA, UNSPECIFIED ORGANISM Status: Acute Qualifiers: Pneumonia type: due to unspecified organism Laterality: bilateral Lung location: lower lobe of lung Qualified Code(s): J18.1 - Lobar pneumonia, unspecified organism Comment: Continue Zosyn. (10) Sepsis Code(s): A41.9 - SEPSIS, UNSPECIFIED ORGANISM Status: Acute Qualifiers: Sepsis type: sepsis due to unspecified organism Qualified Code(s): A41.9 - Sepsis, unspecified organism Comment: Stabilizing. (11) Acute renal failure Status: Acute Qualifiers: Acute renal failure type: unspecified Qualified Code(s): N17.9 - Acute kidney failure, unspecified (12) Atrial flutter with rapid ventricular response Code(s): I48.92 - UNSPECIFIED ATRIAL FLUTTER Status: Acute - Plan progressive renal failure, adverse pleural effusions, discuss fluids with -: broadband installer -: now on cardizem iv for rate control -: requiring BIPAP for resp support -: on iv steroids, duoneb * .
--- NOTE | 2018-06-08 07:32 | RAD ---
SINGLE VIEW OF THE CHEST: COMPARISON: 06/06/18. HISTORY: Status post thoracocentesis. FINDINGS: A single view of the chest shows a normal-size cardiomediastinal silhouette. There are small to mode rate bilateral pleural effusions. The left-sided effusion is smaller than the prior exam. No pneumo thorax is seen. Degenerative changes are seen in the spine. IMPRESSION: Moderate bilateral pleural effusions. POS: [facility]
[2018-06-08 08:55] VITALS: BP 82/52
[2018-06-08] MEDS: Potassium Chloride 20 MEQ in Premix Bag 1 BAG IVPB SCH ×2 (08:57→08:58)
[2018-06-08] MEDS: Enoxaparin Sodium 60 MG/0.6 ML SYRINGE SC SCH (08:58)
[2018-06-08] MEDS ORDERED: Furosemide 40 MG/4 ML VIAL SLOW IVP SCH (09:00)
--- NOTE | 2018-06-08 12:58 | CON ---
DATE OF CONSULTATION: 06/08/2018 REASON FOR CONSULTATION: Cardiomyopathy. Please see Dr. Dick Denton's full consultation for details. HISTORY OF PRESENT ILLNESS: Briefly, Ms. Tavera was recently admitted for urosepsis. She did requi re pressor support. She also developed AFib with RVR. She is now more stable. She is off pressor s upport. Her respiratory status is stable. Her blood pressure remains low. She has no previous history of underlying coronary artery disease. She has no previous history of PN D, orthopnea or lower extremity edema. PHYSICAL EXAMINATION: GENERAL: Patient is a pleasant female who is in no acute distress. The patient appears her stated a ge. VITAL SIGNS: Blood pressure 120/65, pulse 115, respirations 20. NEUROLOGIC: The patient is alert and oriented times 3 with no focal neurologic deficits. HEENT: Sclerae without icterus. Mouth has moist mucous membranes with normal pallor. NECK: No JVD. Carotid upstroke brisk. No bruits bilaterally. LUNGS: Clear to auscultation with unlabored respirations. BACK: No scoliosis or kyphosis. CARDIAC: Regular rate and rhythm with normal S1 and S2. No S3 or S4 noted. No significant rubs, mu rmurs, thrills, or gallops noted throughout the precordium. PMI is not displaced. There is no leonor ternal heave. ABDOMEN: Soft, nontender, nondistended. No peritoneal signs present. No hepatosplenomegaly. No ab normal striae. EXTREMITIES: 2+ femoral and 2+ dorsalis pedis pulses. No cyanosis, clubbing, or edema. SKIN: No gross abnormalities. PERTINENT LABS: Hemoglobin 13, creatinine 1.79. IMPRESSION: 1. 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 2. Recent urosepsis. RECOMMENDATIONS: Likely related to recent septic episode. I did discuss proceeding with medical the rapy with family as well as repeating her echo. At this point, they are not interested in any furthe r therapy including medication. They are going to consult with hospice. Otherwise, from my standpoi nt, I have no further recommendations. Please reconsult if things change.
[2018-06-08 13:27] VITALS: TEMP 98.7
--- NOTE | 2018-06-08 13:49 | CON-2 ---
DATE OF CONSULTATION: 06/08/2018 CHIEF COMPLAINT: Confusion. HISTORY OF PRESENT ILLNESS: The patient is an 82-year-old female that presented to the emergency room on 06/03/2018 and was found to be in urosepsis. The patient was also noted to have an echocardiogram that showed an EF of 20%- 25% with global hypokinesis. Diastolic dysfunction could not be assessed secondary to tachycardia with mild mitral regurgitation and mild tricuspid regurgitation. Upon further questioning with the family, the patient has not had any signs of fluid overload with lower extremity edema, orthopnea or paroxysmal nocturnal dyspnea over the last few months. The patient has never been told that she has any sort of heart condition or irregular heartbeat. The patient's family has noted that she does have a past history of breast cancer that they are opting not to treat as well as said she has declined in functioning over the last year slowly. The family is wishing not to have any invasive intervention done at this time and is actually opting to not have even medical management completed at this time. The patient denies any chest pain, any shortness of breath, any nausea, vomiting or diarrhea. The patient also denies any lower extremity edema, any asymmetric swelling, any unilateral weakness, vision changes or headaches. The patient's son is present for the interview and provides most of the history at this time. PAST MEDICAL HISTORY: Hypertension, left breast cancer without treatment, chronic back pain, hypothyroidism. PAST SURGICAL HISTORY: Appendectomy, hysterectomy, left breast lumpectomy. FAMILY HISTORY: Noncontributory to this case. SOCIAL HISTORY: The patient denies any alcohol use or drug use. The patient does currently smoke approximately 1 pack of cigarettes per day. ALLERGIES: To MORPHINE. MEDICATIONS: 1. Levothyroxine 100 mcg daily. 2. Aspirin 81 mg p.o. daily. 3. Captopril/hydrochlorothiazide 50 mg/25 mg 1 tab p.o. daily. 4. Gabapentin 300 mg p.o. at bedtime. REVIEW OF SYSTEMS: A 12-point review of systems was completed and was otherwise negative unless listed above in the HPI. PHYSICAL EXAMINATION: VITAL SIGNS: Blood pressure 120/65, heart rate 124, oxygen saturation was 94% on nasal cannula, respiratory rate was 23. GENERAL: The patient is lying comfortably in bed, rather drowsy. The patient is alert and oriented x2. NECK: No JVD. RESPIRATORY: Clear to auscultation with unlabored respirations. CARDIOVASCULAR: Irregular rate and rhythm. No S3 or S4 noted. No murmurs, thrills or gallops. ABDOMEN: Soft, nontender, nondistended. No peritoneal signs. No hepatosplenomegaly. No abnormal state. EXTREMITIES: Peripheral pulses palpated throughout. No cyanosis, clubbing or edema. LABORATORY DATA: Hemoglobin 13.5, hematocrit 39.4, white blood cell 20.0, platelet count 108,000. Sodium 138, potassium 3.1, chloride 101, bicarbonate 26 , BUN 41, creatinine 1.79, glucose 285. RADIOGRAPHIC EVALUATION: The patient had a chest x-ray on 06/08/2018 that showed moderate bilateral pleural effusions. ASSESSMENT AND PLAN: 1. New onset cardiomyopathy with left ventricle ejection fraction of 20%-25%. The patient's family was counseled on proceeding with medical therapy as this may be due to just the acute illness. The patient's family is not interested in further therapy either including optimizing medical management. They would like to consult hospice to send the patient home for care and comfort as the patient has a lot of anxiety and does not want to be placed in a chcf. Otherwise, this patient would like to continue current plan of care. 2. Atrial fibrillation with rapid ventricular response. The patient is no longer on pressor support. Respiratory status is stabilized; however, her blood pressure does remain low. The patient is currently on diltiazem drip at 5 with good rate control at this time. Will allow primary team to make further treatment changes as this patient's family does not want to pursue further medical management optimization. 3. Urosepsis. We will defer management to the primary team. 4. Acute kidney injury versus chronic kidney disease. Ensure nephrotoxic drugs are avoided as well as monitoring hydration status. 5. Hypokalemia. The patient is currently receiving potassium replacement. At this time, per the family's wishes, cardiology will sign off unless otherwise notified of a change in status or change in wishes from the family. This patient was seen and evaluated with Dr. Rafi Cameron, the Cardiology attending. JEFFRY
[2018-06-08] MEDS ORDERED: Vancomycin HCl 1.25 GM in Sodium Chloride 0.9% 250 ML 250 ML IVPB SCH (16:00)
--- NOTE | 2018-06-08 16:32 | DIS ---
DATE OF ADMISSION: 06/03/2018 DATE OF DISCHARGE: 06/08/2018 TRANSFER OF CARE DISCHARGE DISPOSITION: Discharged to [facility]. PRIMARY CARE PROVIDER: Chet Cui M.D. FINAL DIAGNOSES: Atrial flutter with rapid ventricular response, acute respiratory failure with hypo min, pleural effusion, bilateral septic shock syndrome, urinary tract infection with Pseudomonas spec ies, chronic obstructive pulmonary disease, pneumonia, acute renal failure, acute cardiomyopathy. DISCHARGE MEDICATIONS: She is being discharged on the following medications, which are of course moni ceptible to being changed by hospice, Protonix 40 mg a day, Zofran 4 mg IV q.6 hours, DuoNeb 3 mL q.6 hours, Tylenol 650 mg p.o. or [place] p.r.n. ALLERGIES: To MORPHINE. DIET: As tolerated. CODE STATUS: DNR. Outpatient DNR completed. HOSPITAL COURSE: The patient admitted to [facility] on 06/03/2018 with confusion, history o f left breast cancer, chronic pain, hypertension. The patient was placed in ICU. She was on pressor s. Cultures were obtained. Antibiotics started. Urine culture also obtained. Chest x-ray on admis joyce, no evidence of pneumonia or heart failure. Laboratory on admission, white count 11.9 with an a bsolute neutrophilia, hemoglobin 15.0, platelet count 261,000. Blood gas; pH of 7.13, 100% O2. Sodium 128, potassium 3.5, creatinine 0.77. Brain CT, no acute intracranial abnormality. Abdomina l pelvis CT reveals small bilateral pleural effusions, mild pulmonary edema, a nodule in the left roslyn gula and a soft tissue mass in the posterior elements of L4. The patient was seen in consultation by Dr. Adalid Lemons, Pulmonology linseed cake trimmer. She was given IV fluids, he agreed with antibiotics, s tayed in the ICU. The patient was somewhat improved on that day. Chest x-ray on 06/05/2018 reveal b ibasilar infiltrates with effusions. The patient was on antibiotics continued. On 06/06/2018, she n ow had a moderate left and small right pleural effusion. Temperature was elevated at 106, pulse 109, blood pressure 127/75, respirations 15, 100% sat on a nonrebreather. Her cultures grew Pseudomonas aeruginosa pansensitive out of her urine. Blood cultures were normal. By 06/05/2018, her white coun t was up to 22,000, hemoglobin stable at 14.8. She had up to 16% bands. Her creatinine continued to rise during her hospital stay with decreased urine output, increased renal failure, lactic acid incr eased. Antibiotics were continued with piperacillin and vancomycin. On 06/07/2018, a thoracentesis was performed. Fluid was obtained. Cultures have been negative. Fluid revealed protein of 1.4. LD H 543, . Vancomycin was followed, trough levels. On 06/07/2018, she went into atrial flutter w ith rapid ventricular response. By this time, her chest x-ray, moderate bilateral pleural effusions, pulmonary vascular congestion. Echocardiogram was done 06/06/2018, showed a serious decrease in EF of 20%-25%. The patient's status has continued to deteriorate. She was seen in consultation today b y Dr. Rafi Cameron. Between Dr. Cameron, myself and Dr. Lemons, we agreed with the family's desire for hospice management as the patient had refused therapy for her breast cancer. She has been given an out of hospital DNR. She is currently being prepared for transfer to [facility] inpatient. Thirty five minutes spent preparing this discharge.
--- NOTE | 2018-06-08 17:00 | PRG ---
DATE OF SERVICE: 06/08/2018 SERVICE: Pulmonary Medicine. INTERVAL HISTORY: The patient is doing okay from a respiratory standpoint. Yesterday, she got into a little bit of distress and got put back on BiPAP. Overnight, she responded very nicely. She denie s any chest pain, nausea, vomiting. She is not coughing up any sputum. She continues to have a ratt le deep inside of her chest. Nursing reports no other overnight events. PHYSICAL EXAMINATION: VITAL SIGNS: Afebrile, pulse 114, blood pressure 95/51, respirations 17, saturation 95% on 4 liters nasal cannula currently. GENERAL: The patient is awake and alert, in no apparent distress. LUNGS: Extensive rhonchi are present. There is a prolonged expiratory phase. I do not appreciate w heezing, but crackles are appreciated. HEART: Normal rate, regular. ABDOMEN: Soft, nontender, nondistended. Bowel sounds are positive. MUSCULOSKELETAL: No cyanosis or clubbing. There is pitting at the sacrum. No pitting in the lower extremities. GENITOURINARY: Painting catheter in place. NEUROLOGIC: Grossly nonfocal. LABORATORY DATA: WBC 20.0, hemoglobin 13.5, platelets 108,000. Creatinine 1.79 and gently up trendi ng, BUN 41. Potassium 3.1. Blood sugar ranges from 268-368. Fungal smear is currently pending. Ur ine culture is growing Pseudomonas, which is pansensitive. Blood cultures negative x1 out of 2. Bod y fluid cultures are otherwise negative to date. ASSESSMENT: 1. Acute hypoxic respiratory failure. 2. Acute systolic heart failure. 3. Septic shock, resolving. 4. Urinary tract infection secondary to Proteus. 5. Chronic obstructive pulmonary disease with acute exacerbation. DISCUSSION AND PLAN: We will start to diurese her once she can tolerate it. Cardiology opinion is colleen martinez pending. She will need to stay in the ICU for an additional 24-48 hours. From my perspecti ve, the patient has very advanced debility. The family is telling me that even at baseline, she did have a hard time participating with anything that physical therapy wanted to do. She is adamant that she go home and not go to any type of a skilled facility. As such, our choices are to continue margarito pham what we are doing and move towards going home with hospice sooner. I will continue to follow momo arora as she remains in this location.
[2018-06-09] MEDS ORDERED: Enoxaparin Sodium 60 MG/0.6 ML SYRINGE SC SCH (09:00)
--- NOTE | 2018-06-11 14:59 | EKG ---
Test Reason : STAT Blood Pressure : / mmHG Vent. Rate : 108 BPM Atrial Rate : 108 BPM P-R Int : 170 ms QRS Dur : 122 ms QT Int : 332 ms P-R-T Axes : 040 -32 080 degrees QTc Int : 444 ms Sinus tachycardia Left axis deviation Non-specific intra-ventricular conduction delay Nonspecific T wave abnormality Abnormal ECG When compared with ECG of 03-JUN-2018 20:49, (Unconfirmed) Significant changes have occurred Confirmed by HENRIK STACK MD ([id number]) on 06/11/2018 2:58:55 PM Referred By: Confirmed By:HENRIK STACK MD
== END 2018-06-08 16:08 | disposition hospice, inpatient (51) | DRG 871 ==
LOC: ERS 20:13 → CCU 22:00
PROVIDERS: ADMIT Hospitalist; ATTEND Hospitalist
PROC: 3E033XZ Introduction of Vasopressor into Peripheral Vein, Percutaneous Approach (ICD-10-PCS; 2018-06-04)
PROC: 02HV33Z Insertion of Infusion Device into Superior Vena Cava, Percutaneous Approach (ICD-10-PCS; 2018-06-04)
PROC: 0W993ZX Drainage of Right Pleural Cavity, Percutaneous Approach, Diagnostic (ICD-10-PCS; 2018-06-06)
PROC: 5A09457 Assistance with Respiratory Ventilation, 24-96 Consecutive Hours, Continuous Positive Airway Pressure (ICD-10-PCS; principal; 2018-06-07)
DX: A41.52 Sepsis due to Pseudomonas (principal); R65.21 Severe sepsis with septic shock; J96.00 Acute respiratory failure, unspecified whether with hypoxia or hypercapnia; I50.21 Acute systolic (congestive) heart failure; J18.9 Pneumonia, unspecified organism; N39.0 Urinary tract infection, site not specified; J44.1 Chronic obstructive pulmonary disease with (acute) exacerbation; E87.4 Mixed disorder of acid-base balance; I48.92 Unspecified atrial flutter; J44.0 Chronic obstructive pulmonary disease with (acute) lower respiratory infection; N17.9 Acute kidney failure, unspecified; I42.9 Cardiomyopathy, unspecified; C50.912 Malignant neoplasm of unspecified site of left female breast; M54.9 Dorsalgia, unspecified; G89.29 Other chronic pain; Z88.5 Allergy status to narcotic agent; E03.9 Hypothyroidism, unspecified; I11.0 Hypertensive heart disease with heart failure; B96.4 Proteus (mirabilis) (morganii) as the cause of diseases classified elsewhere; B96.5 Pseudomonas (aeruginosa) (mallei) (pseudomallei) as the cause of diseases classified elsewhere; Z66 Do not resuscitate; Z51.5 Encounter for palliative care; F17.210 Nicotine dependence, cigarettes, uncomplicated; E87.6 Hypokalemia; L89.152 Pressure ulcer of sacral region, stage 2
CPT/HCPCS: 36415; 36556; 51701; 70450; 71045; 74176; 80048; 80053; 80202; 81003; 81015; 82805; 82945; 83605; 83615; 83735; 83986; 84100; 84157; 85025; 85060; 87040; 87070; 87077; 87086; 87116; 87149; 87186; 87205; 87206; 88112; 88305; 88341; 88342; 89051; 93005; 93010; 93306; 94640; 94660; 94760; 96361; 96365; 96367; 96375; A4353; C9113; G8978-GP-CM; G8979-GP-CK; J0131; J0696; J1650; J1885; J1940; J2001; J2060; J2405; J2543; J2920; J3370; J3475; J3480; J3490; J7050; J7070; J7620